=== PATIENT | female | born 1960 | race Caucasian/White ===

== ENCOUNTER 2017-04-26 01:56 | Inpatient (IN) | payer OTHER ==
[2017-04-26] VITALS (22 sets, daily range): BP systolic 70–156; BP diastolic 53–133
[~2017-04-26] VITALS: Ht 154.9 cm; Wt 104.4 kg
[2017-04-26 02:28] LABS: BASE EXCESS 5.1 mEq/L (-3 to +3); BICARBONATE 32.9 mEq/L (22-26); CARBOXY HGB 6.5 % (0-5); METHEMOGLOBIN 1.2 % (0-1.5); PCO2 61 mm Hg (35-45); PO2 249 mm Hg (80-100); pH 7.34 (7.35-7.45)
[2017-04-26 02:28] LABS: ADD MIUA? YES; BILIRUBIN NEGATIVE; BLOOD SMALL; COLOR AMBER ((YELLOW)); GLUCOSE (STRIP) NEGATIVE; KETONES 5; LEUKOCYTES SMALL; NITRITE NEGATIVE; PROTEIN (STRIP) 30
[2017-04-26 02:29] LABS: COMMENTS - BLOOD GASES C+; DEVICE VENT; FI02 100 %; MECHANICAL RATE 18 resp/min; MODE A/C; PEEP 5 CM/H20; SITE LR; TIDAL VOLUME 450 ML; TOTAL RESP RATE 18 resp/min
[2017-04-26] MEDS ORDERED: OXYCODONE HCL10 MG PO ×2 (02:35→14:32)
[2017-04-26 02:40] LABS: EOSINOPHIL (%) 0.2 % (0-5); HEMATOCRIT 44.7 % (36.0-46.0); IMMATURE GRANULOCYTE (%) 0.4 % (0.0-0.7); INSTRUMENT ABS NEUTROPHIL CT 8.6 K/uL; LYMPHOCYTE COUNT 1.3 K/uL (1.0-2.8); MCH 27.9 PG (29.0-34.0); MCHC 30.6 G/DL (30.0-36.0); MEAN PLAT.VOLUME 9.9 uM^3 (9.5-12.4); MONOCYTE (%) 6.1 % (3-12); MONOCYTE COUNT 0.7 K/uL (0-0.8); NEUTROPHIL COUNT 8.6 K/uL (1.8-6.4); PLATELET COUNT 287 K/uL (156-360); RBC DIS.WIDTH-CV 14.3 % (11.8-14.6); RBC DIS.WIDTH-SD 48.1 % (39-53); RED BLOOD COUNT 4.91 M/uL (3.80-5.20); WHITE BLOOD COUNT 10.7 K/uL (4.1-10.2)
[2017-04-26 02:52] LABS: CHLORIDE 97 mEq/L (99-109); POTASSIUM 3.8 mEq/L (3.7-5.4); SODIUM 137 mEq/L (136-147)
[2017-04-26 02:53] LABS: GLUCOSE 102 mg/dL (70-99)
[2017-04-26 02:55] LABS: ANION GAP 12 MEQ/L (2-14)
[2017-04-26 02:57] LABS: GFR ESTIMATE (CALCULATED) 21 mL/min/
[2017-04-26 02:58] LABS: UREA NITROGEN (BUN) 38 mg/dL (9-23)
[2017-04-26 03:00] LABS: BACTERIA 1+ /HPF; EPITHELIAL CELLS RARE /HPF; HYALINE CASTS 20-30 /LPF; MUCUS 2+ /LPF; RED BLOOD CELLS 0-5 /HPF (0-5); UCUL ADDED? YES; WHITE BLOOD CELLS 15-20 /HPF (0-5)
[2017-04-26 03:01] LABS: TROP-I INTERPRETATION NEGATIVE; TROPONIN-I 0.22 ng/mL (0.0-0.30)
[2017-04-26] MEDS ORDERED: REMERON15 M2 PO (03:26)
[2017-04-26] MEDS ORDERED: ALPRAZOLAM0.5 MG PO (03:26)
[2017-04-26] MEDS ORDERED: DOLOPHINE HCL10 MG PO (03:26)
[2017-04-26] MEDS ORDERED: PEPCID20 MG PO (03:27)
[2017-04-26] MEDS ORDERED: DUONEB 2.5-0.5 M3 ML AEROSOL (03:27)
[2017-04-26] MEDS ORDERED: ADVAIR 250/501 DISK IH (03:27)
[2017-04-26 06:57] LABS: METH RESISTANT S AUREUS PCR POSITIVE (NEGATIVE)
[2017-04-26 06:59] LABS: PROBE CHECK PASS
[2017-04-26] MEDS ORDERED: ADVAIR 500/501 DISK IH (14:23)
[2017-04-26] MEDS ORDERED: BONIVA150 MG PO (14:24)
[2017-04-26] MEDS ORDERED: XANAX0.5 MG PO (14:24)
[2017-04-26] MEDS ORDERED: CALCIUM500 M4 PO (14:25)
[2017-04-26] MEDS ORDERED: COLACE100 MG PO (14:27)
[2017-04-26] MEDS ORDERED: SANTYL30 GM TP (14:27)
[2017-04-26] MEDS ORDERED: FIBER500 MG PO (14:28)
[2017-04-26] MEDS ORDERED: NEURONTIN400 MG PO (14:28)
[2017-04-26] MEDS ORDERED: GENERLAC10 GM/15 M PO (14:29)
[2017-04-26] MEDS ORDERED: METHADONE10 MG PO (14:30)
[2017-04-26] MEDS ORDERED: MIRTAZAPINE30 MG PO (14:31)
[2017-04-26] MEDS ORDERED: METHOCARBAMOL750 MG PO (14:31)
[2017-04-26] MEDS ORDERED: MIRALAX17 GM PO (14:33)
[2017-04-26] MEDS ORDERED: PRILOSEC20 MG PO (14:34)
[2017-04-27] VITALS (23 sets, daily range): BP systolic 74–147; BP diastolic 51–101
[2017-04-27 08:20] LABS: ANION GAP 6 MEQ/L (2-14); CHLORIDE 104 MEQ/L (99-109); GLUCOSE 79 mg/dL (70-99); MAGNESIUM 2.4 mg/dl (1.3-2.7); SAMPLE HEMOLYSIS CHECK 0; SAMPLE ICTERIC CHECK 0; SAMPLE LIPEMIA CHECK 0
[2017-04-27 08:22] LABS: GFR ESTIMATE (CALCULATED) > 59 mL/min/; SODIUM 144 MEQ/L (136-147); UREA NITROGEN (BUN) 18 mg/dL (9-23)
[2017-04-27 23:27] LABS: INTER. NORMALIZED RATIO 1.2; PROTHROMBIN TIME 13.4 SEC (10.2-12.9)
[2017-04-28] VITALS (8 sets, daily range): BP systolic 98–161; BP diastolic 70–104
[2017-04-28 05:12] LABS: INTER. NORMALIZED RATIO 1.3
[2017-04-29 00:23] VITALS: BP 131/85
[2017-04-29 04:20] VITALS: BP 152/91
[2017-04-29 07:00] VITALS: BP 134/77
[2017-04-29 07:10] LABS: INTER. NORMALIZED RATIO 2.3; PROTHROMBIN TIME 25.7 SEC (10.2-12.9)
[2017-04-29 11:00] VITALS: BP 136/80
[2017-04-29] MEDS ORDERED: COUMADIN2.5 MG PO (12:33)
[2017-04-29] MEDS ORDERED: LOVENOX100 MG/1 M SC (12:33)
[2017-04-29] MEDS ORDERED: AMOXICILLIN500 MG PO (12:33)
== END 2017-04-29 16:00 | disposition home or self-care (01) | DRG 917 ==
LOC: EME 01:56 → 5EAST 03:46 → 4WEST 03:46 → EDOF 03:46 → ENRESERV 03:51 → 4WEST 04:35 → ENRESERV 04-28 07:07 → 5EAST 04-28 15:19 → ENPENDDIS 04-29 → 5EAST 04-29 16:00
PROVIDERS: Emergency Medicine; Internal Medicine Critical Care Medicine
PROC: 0BH17EZ Insertion of Endotracheal Airway into Trachea, Via Natural or Artificial Opening (ICD-10-PCS; principal; 2017-04-26)
PROC: 5A1935Z Respiratory Ventilation, Less than 24 Consecutive Hours (ICD-10-PCS; principal; 2017-04-26)
DX: T40.2X1A Poisoning by other opioids, accidental (unintentional), initial encounter (principal); J96.21 Acute and chronic respiratory failure with hypoxia; T42.4X1A Poisoning by benzodiazepines, accidental (unintentional), initial encounter; G93.49 Other encephalopathy; T88.8XXA Other specified complications of surgical and medical care, not elsewhere classified, initial encounter; I82.622 Acute embolism and thrombosis of deep veins of left upper extremity; Y92.239 Unspecified place in hospital as the place of occurrence of the external cause; Z89.511 Acquired absence of right leg below knee; J44.9 Chronic obstructive pulmonary disease, unspecified; N39.0 Urinary tract infection, site not specified; E66.9 Obesity, unspecified; Z68.41 Body mass index [BMI] 40.0-44.9, adult; B95.0 Streptococcus, group A, as the cause of diseases classified elsewhere; G89.29 Other chronic pain; N28.9 Disorder of kidney and ureter, unspecified
CPT/HCPCS: 36600; 71010; 80048; 81003; 82803; 83605; 83735; 84100; 84484; 85025; 85610; 87040; 87070; 87077; 87086; 87186; 87205; 87641; 90686; 93005; 93971; 94002; 94003; 94640; 94640 76; 94799; 97530 GP; 99202; 99281; 99285; J0692; J1644; J1650; J2060; J2310; J2704; J3370; J7030; J7050; J7120; S0028

== ENCOUNTER 2017-05-10 14:08 | Inpatient (IN) | payer OTHER ==
[~2017-05-10] VITALS: Ht 154.9 cm; Wt 97.2 kg
[~2017-05-10 14:08] MED LIST: ADVAIR 250/501 DISK IH; ADVAIR 500/501 DISK IH; ALPRAZOLAM0.5 MG PO; AMOXICILLIN500 MG PO; BONIVA150 MG PO; CALCIUM500 M4 PO; COLACE100 MG PO; COUMADIN2.5 MG PO; DOLOPHINE HCL10 MG PO; DUONEB 2.5-0.5 M3 ML AEROSOL; FIBER500 MG PO; GENERLAC10 GM/15 M PO; LOVENOX100 MG/1 M SC; METHADONE10 MG PO; METHOCARBAMOL750 MG PO; MIRALAX17 GM PO; MIRTAZAPINE30 MG PO; NEURONTIN400 MG PO; OXYCODONE HCL10 MG PO; PEPCID20 MG PO; PRILOSEC20 MG PO; REMERON15 M2 PO; SANTYL30 GM TP; XANAX0.5 MG PO
[2017-05-10 14:54] LABS: HEMATOCRIT 49.3 % (36.0-46.0); MCH 27.9 PG (29.0-34.0); MCHC 31.2 G/DL (30.0-36.0); MCV 89.3 FL (83-99); MEAN PLAT.VOLUME 9.2 uM^3 (9.5-12.4); RBC DIS.WIDTH-CV 14.6 % (11.8-14.6); RBC DIS.WIDTH-SD 48.1 % (39-53); RED BLOOD COUNT 5.52 M/uL (3.80-5.20)
[2017-05-10 14:58] LABS: PLATELET COUNT 442 K/uL (156-360)
[2017-05-10 15:08] LABS: CHLORIDE 103 mEq/L (99-109); POTASSIUM 4.3 mEq/L (3.7-5.4); SODIUM 140 mEq/L (136-147)
[2017-05-10 15:10] LABS: GLUCOSE 82 mg/dL (70-99)
[2017-05-10 15:11] LABS: ANION GAP 11 MEQ/L (2-14)
[2017-05-10 15:14] LABS: GFR ESTIMATE (CALCULATED) > 59 mL/min/
[2017-05-10 15:15] LABS: UREA NITROGEN (BUN) 8 mg/dL (9-23)
[2017-05-10 21:08] VITALS: BP 141/91
[2017-05-11] VITALS (7 sets, daily range): BP systolic 131–158; BP diastolic 64–90
[2017-05-11 05:39] LABS: HEMATOCRIT 47.6 % (36.0-46.0); MCH 28.6 PG (29.0-34.0); MCHC 31.9 G/DL (30.0-36.0); MCV 89.5 FL (83-99); MEAN PLAT.VOLUME 9.6 uM^3 (9.5-12.4); PLATELET COUNT 446 K/uL (156-360); RBC DIS.WIDTH-CV 14.4 % (11.8-14.6); RED BLOOD COUNT 5.32 M/uL (3.80-5.20); WHITE BLOOD COUNT 8.7 K/uL (4.1-10.2)
[2017-05-11 05:57] LABS: ANION GAP 11 MEQ/L (2-14); CHLORIDE 106 MEQ/L (99-109); GFR ESTIMATE (CALCULATED) > 59 mL/min/; GLUCOSE 74 mg/dL (70-99); POTASSIUM 3.9 MEQ/L (3.7-5.4); SAMPLE HEMOLYSIS CHECK 0; SAMPLE ICTERIC CHECK 0; SAMPLE LIPEMIA CHECK 0; SODIUM 140 MEQ/L (136-147); UREA NITROGEN (BUN) 8 mg/dL (9-23)
[2017-05-11 07:32] LABS: PROTHROMBIN TIME 239.5 SEC (10.2-12.9)
[2017-05-11 07:33] LABS: INTER. NORMALIZED RATIO 19.3
[2017-05-11] MEDS ORDERED: JANTOVEN5 MG PO (11:34)
[2017-05-11] MEDS ORDERED: XANAX0.5 MG PO (11:37)
[2017-05-11 16:30] LABS: PROTHROMBIN TIME 129.1 SEC (10.2-12.9)
[2017-05-11 16:36] LABS: INTER. NORMALIZED RATIO 10.6
[2017-05-12 04:00] VITALS: BP 177/79
[2017-05-12 07:58] VITALS: BP 112/59
[2017-05-12 09:47] LABS: INTER. NORMALIZED RATIO 4.1; PROTHROMBIN TIME 47.6 SEC (10.2-12.9)
[2017-05-12 10:42] VITALS: BP 117/60
[2017-05-12] MEDS ORDERED: AUGMENTIN875 MG PO (13:36)
[2017-05-12 16:05] VITALS: BP 114/65
== END 2017-05-12 17:30 | disposition home or self-care (01) | DRG 151 ==
LOC: EME 14:08 → 5WEST 19:32 → EDOF 19:32 → ENRESERV 19:33 → 5WEST 20:56 → CANRESERV 05-11 10:35 → ENRESERV 05-11 10:35 → 5WEST 05-12 17:30
PROVIDERS: Hospitalist; Nurse Practitioner Family
DX: R04.0 Epistaxis (principal); D68.32 Hemorrhagic disorder due to extrinsic circulating anticoagulants; T45.515A Adverse effect of anticoagulants, initial encounter; Z89.511 Acquired absence of right leg below knee; Z86.718 Personal history of other venous thrombosis and embolism; F41.9 Anxiety disorder, unspecified; F17.200 Nicotine dependence, unspecified, uncomplicated; G89.29 Other chronic pain; Z79.01 Long term (current) use of anticoagulants; Z68.41 Body mass index [BMI] 40.0-44.9, adult; E66.9 Obesity, unspecified; J44.9 Chronic obstructive pulmonary disease, unspecified; F17.290 Nicotine dependence, other tobacco product, uncomplicated; G62.9 Polyneuropathy, unspecified
CPT/HCPCS: 80048; 85027; 85610; 86850; 86900; 86901; 94640; 94640 76; 99281; 99285; G0378; J2405; J7030; S0028